=== PATIENT | female | born 1995 | race Two or more races ===

== ENCOUNTER 2019-08-18 04:24 | Emergency (ER) | payer SELFPAY ==
[2019-08-18 06:06] VITALS: BP 136/88
== END 2019-08-18 06:30 | disposition left against medical advice (07) ==
LOC: ER 04:24
DX: Z53.21 Procedure and treatment not carried out due to patient leaving prior to being seen by health care provider (principal)

== ENCOUNTER 2019-08-18 12:54 | Emergency (ER) | payer OTHER ==
[2019-08-18 13:32] VITALS: BP 134/95
[2019-08-18] MEDS ORDERED: METRONIDAZOLE 500 MG TABLET PO ONE ×2 (15:32→19:03)
[2019-08-18] MEDS ORDERED: LEVONORGESTREL 1.5 MG TABLET (1 TAB/ER-USE) PO ONE ×2 (15:32→19:03)
[2019-08-18] MEDS ORDERED: LIDOCAINE 1% INJ-PF (10 MG/ML) 30 ML SDV INJ ONE ×2 (15:32→19:03)
[2019-08-18] MEDS ORDERED: CEFTRIAXONE INJ 250 MG VIAL IM ONE ×2 (15:32→19:03)
[2019-08-18] MEDS ORDERED: AZITHROMYCIN 250 MG TABLET PO ONE ×2 (15:32→19:03)
[2019-08-18] MEDS ORDERED: PROMETHAZINE HCL 25 MG TABLET PO ONE ×2 (15:32→19:03)
[2019-08-18] MEDS ORDERED: HEPATITIS B VIRUS VACCINE-PF 1 ML SYR IM ONE (15:32)
[2019-08-18] MEDS ORDERED: TETANUS/DIPHTHERIA TOX-ADULT 0.5 ML SYR (>=7YO) IM ONE ×2 (15:32→19:03)
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
[2019-08-18 19:15] LABS: ABSOLUTE BASOPHILS # (AUTO) 0.1 10^3/uL (0.0-0.2); ABSOLUTE EOSINOPHILS # (AUTO) 0.1 10^3/uL (0.0-0.6); ABSOLUTE LYMPHOCYTES (AUTO) 3.9 10^3/uL (0.5-4.7); ABSOLUTE MONOCYTES (AUTO) 0.9 10^3/uL (0.1-1.4); ABSOLUTE NEUT (AUTO) 8.3 10^3/uL (1.7-8.2); BASOPHILS % (AUTO) 0.7 % (0-2); HEMATOCRIT 36.9 % (36.0-47.0); HEMOGLOBIN 12.1 g/dL (12.0-15.5); LYMPHOCYTES % (AUTO) 29.7 % (13-45); MEAN CORPUSCULAR HEMOGLOBIN 27.3 pg (27.0-33.4); MEAN CORPUSCULAR HGB CONC 32.9 g/dL (32.0-36.0); MEAN CORPUSCULAR VOLUME 83 fl (80-97); MONOCYTES % (AUTO) 6.5 % (3-13); PLATELET COUNT 262 10^3/uL (150-450); RED BLOOD COUNT 4.44 10^6/uL (3.72-5.28); SEGMENTED NEUTROPHILS % (AUTO) 62.1 % (42-78); TOTAL CELLS COUNTED % (AUTO) 100 %; WHITE BLOOD COUNT 13.3 10^3/uL (4.0-10.5)
[2019-08-18 19:23] LABS: EPITHELIALS (WET MOUNT) 3+ EPITHELIALS SEEN; RBCS (WET MOUNT) RARE RBCS SEEN; T.VAGINALIS (WET MOUNT) NO TRICHOMONAS SEEN; WBCS (WET MOUNT) NO WBCS SEEN; YEAST (WET MOUNT) NO YEAST SEEN
[2019-08-18 19:45] LABS: ALBUMIN 4.9 g/dL (3.5-5.0); ALKALINE PHOSPHATASE 67 U/L (38-126); ANION GAP 15 (5-19); ASPARTATE AMINO TRANSFERASE 27 U/L (14-36); BILIRUBIN,DIRECT 0.2 mg/dL (0.0-0.4); BILIRUBIN,TOTAL 0.6 mg/dL (0.2-1.3); BLOOD UREA NITROGEN 10 mg/dL (7-20); CALCIUM 9.7 mg/dL (8.4-10.2); CARBON DIOXIDE 24 mmol/L (22-30); CHLORIDE 101 mmol/L (98-107); POTASSIUM 4.1 mmol/L (3.6-5.0); TOTAL PROTEIN 8.2 g/dL (6.3-8.2)
[2019-08-18 20:00] LABS: GLUCOSE 69 mg/dL (75-110)
[2019-08-18 22:46] LABS: CHLAM PCR NOT DETECTED (NOT DETECT)
[2019-08-20 08:37] LABS: HEPATITS B SURFACE ANTIGEN Negative (Negative)
[2019-08-20 11:41] LABS: HEPATITIS C VIRUS ANTIBODY 0.1 s/co ratio (0.0-0.9)
== END 2019-08-18 21:26 | disposition home or self-care (01) ==
LOC: ER 12:54
DX: T76.21XA Adult sexual abuse, suspected, initial encounter (principal); Z23 Encounter for immunization; X58.XXXA Exposure to other specified factors, initial encounter
CPT/HCPCS: 99285; 96372; 90471; 96374; 36415; 87210; 85025; 81025; 86592; 80053; 86701; 87491; 87591; 80074; 90714; A9270; J3490 ×2; J0696